=== PATIENT | male | born 1970 | race Caucasian/White ===

== ENCOUNTER 2023-10-17 09:37 | Emergency (ER) | payer BC ==
[~2023-10-17] VITALS: Ht 182.9 cm; Wt 113.6 kg
[2023-10-17 09:45] VITALS: TEMP 98
[2023-10-17] MEDS ORDERED: HYDROmorphone 0.5 MG/0.5 ML SYRINGE IV ONE (10:00)
[2023-10-17] MEDS ORDERED: diphenhydrAMINE 50 MG/ML 1 ML VIAL IV ONE (10:15)
[2023-10-17] MEDS ORDERED: NS 1,000 ML IV ONE (10:15)
[2023-10-17 10:35] LABS: BASO % 0.6 % (0.0-2.0); EOS # 0.2 K/mm3 (0.0-0.7); EOS % 2.9 % (0.0-4.0); GRAN # 3.6 K/mm3 (1.4-6.5); GRAN % 54.9 % (42.2-75.2); HEMATOCRIT 44.5 % (42.0-52.0); HEMOGLOBIN 15.8 g/dl (13.5-18.0); LYMPH # 2.2 K/mm3 (1.2-3.4); LYMPH % 33.1 % (20.0-51.0); MEAN CELL VOLUME 87 fl (80.0-100.0); MEAN CORPUSCULAR HEMOGLOBIN 31 pg (27-31); MEAN CORPUSCULAR HGB CONC 36 g/dl (33.0-37.0); MEAN PLATELET VOLUME 10.2 fl (7.4-10.4); MONO # 0.5 K/mm3 (0.1-0.6); MONO % 8.2 % (1.7-9.3); PLATELET COUNT 176 K/mm3 (130-400); RED BLOOD COUNT 5.13 M/mm3 (4.20-5.60); REDCELL DISTRIBUTION WIDTH-CV 11.7 % (11.5-14.5)
[2023-10-17 10:45] LABS: ALBUMIN 4.5 g/dL (3.5-5.0); BILIRUBIN,TOTAL 1.3 mg/dL (0.2-1.2); CREATININE, serum 0.9 mg/dL (0.72-1.25); POTASSIUM 3.5 mEq/L (3.5-4.5); TOTAL PROTEIN 8.7 g/dl (6.2-8.1)
[2023-10-17 13:43] VITALS: BP 143/85; PULSE 79
== END 2023-10-17 13:44 | disposition home or self-care (01) ==
LOC: COL.ER 09:37
PROVIDERS: Personal Emergency Response Attendant
DX: R51.9 Headache, unspecified (principal)
CPT/HCPCS: J0780; J1170; J1200; J7030